=== PATIENT | male | born 1995 | race African-American/Black ===

== ENCOUNTER 2016-05-08 06:44 | Emergency (ER) | payer OTHER ==
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
== END 2016-05-08 08:07 | disposition home or self-care (01) ==
LOC: CED 06:44
DX: G89.29 Other chronic pain (principal); M54.5 Low back pain; R07.81 Pleurodynia
CPT/HCPCS: 71101; 99283

== ENCOUNTER → 2016-06-07 16:21 | Emergency (ER) | payer OTHER | END | disposition left against medical advice (07) | LOC: CED 16:21 | DX: Z53.21 Procedure and treatment not carried out due to patient leaving prior to being seen by health care provider (principal) ==